=== PATIENT | male | born 1995 | race Caucasian/White ===

== ENCOUNTER 2016-06-30 16:02 | Emergency (ER) | payer BC ==
[2016-06-30 16:18] VITALS: BP 127/61; PULSE 70; RESP 16; TEMP 98.4; O2SAT 96
--- NOTE | 2016-06-30 17:03 | UCPHY ---
H & P Time Seen by Provider: 06/30/16 16:50 Patient Type: New HPI/ROS: CHIEF COMPLAINT: Concerned about frostbite HISTORY OF PRESENT ILLNESS: This is a 21-year-old male who presents complaining of tingling and pallor to his toes. Patient hike for 10 hours yesterday. He reports that his feet felt cold and sore when he return to the car. There was no emergent and water. His feet were not wet. Since then he has noticed that the toes seem pale and or tingling. No blisters. No cyanosis. Patient was otherwise well. He was wearing hiking boots which were not new. REVIEW OF SYSTEMS: Aside from elements discussed in the HPI, a comprehensive 10-point review of systems was reviewed and is negative. PAST MEDICAL HISTORY: Denies. SOCIAL HISTORY: Nonsmoker. GENERAL APPEARANCE: Pleasant, anxious. FOCUSED EXAM OF bilateral feet: The feet are warm to the touch. Dorsalis pedis and posterior tibial pulses are intact. Brisk capillary refill. There is some pallor on his toes, diffusely. No blisters developing. Sensation intact to light touch. No abnormalities noted on the soles of the feet. Neurovascular exam: Good capillary refill, normal motor exam, normal neurologic exam. Smoking Status: Never smoked Constitutional: Initial Vital Signs Temperature (C) 36.9 C 06/30/16 16:14 Heart Rate 70 06/30/16 16:14 Respiratory Rate 16 06/30/16 16:14 Blood Pressure 127/61 H 06/30/16 16:14 O2 Sat (%) 96 06/30/16 16:14 O2 Delivery Mode Room Air Allergies/Adverse Reactions: amoxicillin Allergy (Verified 06/30/16 16:18) Home Medications: Medication Instructions Recorded NK [No Known Home Meds] 06/30/16 MDM/Departure - MDM ED Course/Re-evaluation: Reassured patient that there is no signs of developing frostbite at this point. However, patient understands that if he is toes remain pale, white, or become discolored/dusky or developed a blister he may need to be rechecked. He was given precautions regarding keeping his toes warm, not exposing his toes to cold exposure again, and to use ibuprofen as needed for discomfort. Differential Diagnosis: Differential diagnoses for the patient's symptom complex was considered including but not limited to frostbite, gangrene, blisters from ill-fitting boots, anxiety, trench foot, tay nip. - Depart Disposition: Home, Routine, Self-Care Clinical Impression: Concerns about frostbite, Paresthesia of foot, bilateral Condition: Good Instructions: Frostbite (ED) Additional Instructions: I do not believe that you have clear evidence of frostbite on your toes. For the next several days make sure feet stay warm and dry. Take Tylenol or ibuprofen as needed for discomfort and for soreness. If you developed an area of your foot that is numb and cannot feel (insensate) or if you developed areas of blackish discoloration, please follow up with your primary care physician or return to Urgent Care. You may try arnica gel on your feet. Referrals: NONE *PRIMARY CARE P,. [Primary Care Provider] - As per Instructions - PQRS PQRS Measurement: Not applicable
== END 2016-06-30 17:10 | disposition home or self-care (01) ==
LOC: CED 16:02
DX: R20.2 Paresthesia of skin (principal); Z88.1 Allergy status to other antibiotic agents
CPT/HCPCS: 99203-PO; G0463-PO